=== PATIENT | female | born 1995 | race Caucasian/White ===

== ENCOUNTER 2018-03-27 22:53 | Emergency (ER) | payer SELFPAY ==
[2018-03-27 23:09] VITALS: BP 119/86; PULSE 106; RESP 16; TEMP 37.1; O2SAT 100; BMI 17.2
[2018-03-28 01:38] LABS: RBC Urine None Seen (0-5/HPF)
[2018-03-28 01:42] LABS: Bacteria Urine Many (>30); Culture Indicated Urine Specimen Cultured; Squamous Epithelial Cell Urine 0-1 /HPF; WBC Urine 1-5/HPF (0-5/HPF)
--- NOTE | 2018-03-28 01:45 | ED.SKABFB ---
HPI - Skin/Abscess/Foreign Bdy General Chief complaint: Skin/Abscess/Foreign Body Stated complaint: Abcess on Neck Time Seen by Provider: 03/28/18 00:37 Source: patient Mode of arrival: ambulatory Limitations: no limitations History of Present Illness HPI narrative: Patient is a 22-year-old female who presents with an abscess on her neck for the last 5 days. He is growing bigger. She is a known drug user admits to shooting up heroin in that spot. She has no fever chills numbness or tingling in any of her extremities. MD complaint: abscess/boil Related Data Previous Rx's Medication Instructions Recorded sulfamethoxazole-trimethoprim 1 tab PO BID 7 Days #14 tab 03/28/18 [Bactrim DS] Review of Systems Review of Systems All systems reviewed & are unremarkable except as noted in HPI and below Constitutional Denies chills, Denies fever(s), Denies lethargy and Denies weakness ENT Ears, Nose, Mouth, and Throat: Denies change in voice and Reports neck mass (left supraclavicular) Cardiovascular Denies chest pain, Denies irregular heart rhythm, Denies lightheadedness, Denies palpitations, Denies dyspnea, Denies dyspnea on exertion and Denies orthopnea Respiratory Denies cough, Denies dyspnea, Denies dyspnea on exertion and Denies wheezing Gastrointestinal Gastrointestinal: Denies abdominal pain, Denies change in bowel habits, Denies diarrhea, Denies nausea and Denies vomiting Integumentary/Breasts Reports system reviewed and no additional complaints, except as docu Neurologic Denies weakness Endocrine Denies palpitations Allergic/Immunologic Denies wheezing [facility] Social History Smoking Status: Never smoker substance use type: heroin and IV drugs Exam Initial Vital Signs Initial Vital Signs: Vital Signs Temperature 98.8 F 03/27/18 23:09 Pulse Rate 106 H 03/27/18 23:09 Respiratory Rate 16 03/27/18 23:09 Blood Pressure 119/86 H 03/27/18 23:09 Pulse Oximetry 100 03/27/18 23:09 Const General: cooperative and well developed HENMN Head: normal to inspection and normocephalic Neck Neck: trachea midline, supple, No anterior neck swelling, No midline deformity and No submandibular swelling Other: No pulsatile mass Chest Chest: normal inspection of the chest Resp Effort & Inspection: normal respiratory effort and able to speak in complete sentences Auscultation: clear to auscultation bilaterally Cardio Rate: regular rate Rhythm: regular rhythm Skin Other: Track scott on a couple side of her arms and hands Neck - Left: 1. 3 cm x 4 cm fluctuation no induration Procedures Abscess I/D Site: neck (Left side) Side (if applicable): left Sedation/analgesia: none Local Anesthetic: lidocaine 1% Amount of anesthesia used (mL): 4 Technique: incised with #11 blade Amount of fluid expressed (mL): 15 Irrigation: No Packing used?: none Complications: pain Course Hospital Course: Discussed with patient it does need to be opened and drained. She does not what that last time they just gave her antibiotics. We discussed that as an option as well however she and her boyfriend are discussing it. Patient left the department for a long period of time and then returned. Orders Ordered: ED Orders 03/28/18 01:20 Urine Culture Stat Urine Microscopic Stat Discontinued Medications Trimethoprim/Sulfamethoxazole (Septra Susp Prepack) 1 bottle MISC SEEINSTR ONE Stop: 03/28/18 01:57 Last Admin: 03/28/18 02:31 Dose: Trimethoprim/Sulfamethoxazole (Bactrim Ds Prepack) 1 bottle MISC SEEINSTR ONE Stop: 03/28/18 02:02 Last Admin: 03/28/18 02:12 Dose: 1 bottle Vital Signs - 8 hr 03/27/18 23:09 Temperature 98.8 F Pulse Rate 106 H Respiratory Rate 16 Blood Pressure 119/86 H Pulse Oximetry 100 MDM - Skin/Abscess/Foreign Bdy Lab Data Lab Results 03/28/18 Range/Units 01:20 Urine RBC None seen (0-5/HPF) Urine WBC 1-5/hpf (0-5/HPF) Ur Squamous Epith Cells 0-1 /hpf Urine Bacteria Many (>30) H (None) Ur Culture Indicated? Specimen cultured Micro UA Comment Not Reportable Discharge Plan Departure Patient Disposition: Home, Self-Care Clinical Impression: Abscess of skin or subcutaneous tissue Instructions: DI for Incision and Drainage of a Skin Abscess Activity Restrictions/Additional Instructions: *You have been diagnosed with skin abscess *What to do: Stop using drugs *Continue to take medications as directed -Septra 1 pill twice a day for 7 days *Follow up with your primary care provider in 2-3 days *Return to ER if you should have fever, increasing redness, numbness, tingling or any new, worsening or concerning symptoms Prescriptions: New sulfamethoxazole-trimethoprim [Bactrim DS] 800-160 mg tablet 1 tab PO BID 7 Days Qty: 14 RF: 0 Referrals: [facility] [Outside]
--- NOTE | 2018-03-28 01:48 | ED_ITS ---
HPI - Skin/Abscess/Foreign Bdy General Chief complaint: Skin/Abscess/Foreign Body Stated complaint: Abcess on Neck Time Seen by Provider: 03/28/18 00:37 Source: patient Mode of arrival: ambulatory Limitations: no limitations History of Present Illness HPI narrative: Patient is a 22-year-old female who presents with an abscess on her neck for the last 5 days. He is growing bigger. She is a known drug user admits to shooting up heroin in that spot. She has no fever chills numbness or tingling in any of her extremities. MD complaint: abscess/boil Related Data Previous Rx's Medication Instructions Recorded sulfamethoxazole-trimethoprim 1 tab PO BID 7 Days #14 tab 03/28/18 [Bactrim DS] Review of Systems Review of Systems All systems reviewed & are unremarkable except as noted in HPI and below Constitutional Denies chills, Denies fever(s), Denies lethargy and Denies weakness ENT Ears, Nose, Mouth, and Throat: Denies change in voice and Reports neck mass ( left supraclavicular) Cardiovascular Denies chest pain, Denies irregular heart rhythm, Denies lightheadedness, Denies palpitations, Denies dyspnea, Denies dyspnea on exertion and Denies orthopnea Respiratory Denies cough, Denies dyspnea, Denies dyspnea on exertion and Denies wheezing Gastrointestinal Gastrointestinal: Denies abdominal pain, Denies change in bowel habits, Denies diarrhea, Denies nausea and Denies vomiting Integumentary/Breasts Reports system reviewed and no additional complaints, except as docu Neurologic Denies weakness Endocrine Denies palpitations Allergic/Immunologic Denies wheezing [facility] Social History Smoking Status: Never smoker substance use type: heroin and IV drugs Exam Initial Vital Signs Initial Vital Signs: Vital Signs Temperature 98.8 F 03/27/18 23:09 Pulse Rate 106 H 03/27/18 23:09 Respiratory Rate 16 03/27/18 23:09 Blood Pressure 119/86 H 03/27/18 23:09 Pulse Oximetry 100 03/27/18 23:09 Const General: cooperative and well developed HENLA Head: normal to inspection and normocephalic Neck Neck: trachea midline, supple, No anterior neck swelling, No midline deformity and No submandibular swelling Other: No pulsatile mass Chest Chest: normal inspection of the chest Resp Effort & Inspection: normal respiratory effort and able to speak in complete sentences Auscultation: clear to auscultation bilaterally Cardio Rate: regular rate Rhythm: regular rhythm Skin Other: Track scott on a couple side of her arms and hands Neck - Left: 2 1. 3 cm x 4 cm fluctuation no induration Procedures Abscess I/D Site: neck (Left side) Side (if applicable): left Sedation/analgesia: none Local Anesthetic: lidocaine 1% Amount of anesthesia used (mL): 4 Technique: incised with #11 blade Amount of fluid expressed (mL): 15 Irrigation: No Packing used?: none Complications: pain Course Hospital Course: Discussed with patient it does need to be opened and drained. She does not what that last time they just gave her antibiotics. We discussed that as an option as well however she and her boyfriend are discussing it. Patient left the department for a long period of time and then returned. Orders Ordered: ED Orders 03/28/18 01:20 Urine Culture Stat Urine Microscopic Stat Discontinued Medications Trimethoprim/Sulfamethoxazole (Septra Susp Prepack) 1 bottle MISC SEEINSTR ONE Stop: 03/28/18 01:57 Last Admin: 03/28/18 02:31 Dose: Trimethoprim/Sulfamethoxazole (Bactrim Ds Prepack) 1 bottle MISC SEEINSTR ONE Stop: 03/28/18 02:02 Last Admin: 03/28/18 02:12 Dose: 1 bottle Vital Signs - 8 hr 03/27/18 23:09 Temperature 98.8 F Pulse Rate 106 H Respiratory Rate 16 Blood Pressure 119/86 H Pulse Oximetry 100 MDM - Skin/Abscess/Foreign Bdy Lab Data Lab Results 03/28/18 Range/Units 01:20 Urine RBC None seen (0-5/HPF) Urine WBC 1-5/hpf (0-5/HPF) Ur Squamous Epith Cells 0-1 /hpf Urine Bacteria Many (>30) H (None) Ur Culture Indicated? Specimen cultured Micro UA Comment Not Reportable Discharge Plan Departure Patient Disposition: Home, Self-Care Clinical Impression: Abscess of skin or subcutaneous tissue Instructions: DI for Incision and Drainage of a Skin Abscess Activity Restrictions/Additional Instructions: *You have been diagnosed with skin abscess *What to do: Stop using drugs *Continue to take medications as directed -Septra 1 pill twice a day for 7 days *Follow up with your primary care provider in 2-3 days *Return to ER if you should have fever, increasing redness, numbness, tingling or any new, worsening or concerning symptoms Prescriptions: New sulfamethoxazole-trimethoprim [Bactrim DS] 800-160 mg tablet 1 tab PO BID 7 Days Qty: 14 RF: 0 Referrals: [facility] [Outside]
[2018-03-28] MEDS: SULFA/TRIMETH 800/160 PREPACK 1 BOTTLE MISC (02:12)
[2018-03-28 02:37] VITALS: BP 120/70; PULSE 94; RESP 20; TEMP 36.8; O2SAT 98
== END 2018-03-28 02:46 | disposition home or self-care (01) ==
PROVIDERS: Emergency Provider Emergency Medicine
DX: L02.11 Cutaneous abscess of neck (principal)
CPT/HCPCS: 10060; 81003; 81015; 81025; 87077; 87086; 87186; 99283

== ENCOUNTER 2018-05-03 21:03 | Emergency (ER) | payer SELFPAY ==
[2018-05-03 21:54] VITALS: BP 144/89; PULSE 105; RESP 15; TEMP 36.6; O2SAT 100; BMI 17.2
[2018-05-04] MEDS: IBUPROFEN 400 MG TABLET 800 MG PO (01:18)
[2018-05-04] MEDS: DOXYCYCLINE HYCLATE 100 MG TABLET PO (01:18)
[2018-05-04] MEDS: ONDANSETRON 4 MG ODT PREPACK 1 BOTTLE MISC (01:18)
[2018-05-04 01:39] VITALS: BP 124/77; PULSE 94; RESP 15; O2SAT 100
--- NOTE | 2018-05-04 04:26 | ED_ITS ---
HPI - Extremity Problem General Chief complaint: Extremity Problem,Nontraumatic Stated complaint: FACIAL SWELLING, NOT SURE WHY. X2 DAYS Time Seen by Provider: 05/03/18 21:12 Source: patient and family Mode of arrival: ambulatory Limitations: no limitations History of Present Illness HPI Narrative: Patient presents to the emergency department this evening with a chief complaint of some facial swelling around her eyes. She had which he thought was a pimple above her right eyebrow and she has been squeezing it with minimal pus production for the past few days. She now has increased swelling and some redness on her forehead and noted some swelling around her eyes as well. She denies any headache or blurred vision. She has no trouble breathing or swallowing. She denies chest pain or shortness of breath. She denies any history of MRSA. MD Complaint: other (Facial swelling) Onset (ago): day(s) Related Data Previous Rx's Medication Instructions Recorded doxycycline hyclate 100 mg PO BID #20 tab 05/04/18 Allergies Allergy/AdvReac Type Severity Reaction Status Date / Time erythromycin base Allergy Verified 05/03/18 21:54 Penicillins Allergy Verified 05/03/18 21:54 Review of Systems Review of Systems All systems reviewed & are unremarkable except as noted in HPI and below Constitutional Denies chills, Denies fever(s), Denies lethargy and Denies weakness Eyes Denies change in vision, Denies eye discharge, Denies irritation and Denies loss of vision ENT Ears, Nose, Mouth, and Throat: Denies change in voice, Denies neck pain and Denies sore throat Cardiovascular Denies chest pain, Denies irregular heart rhythm, Denies lightheadedness, Denies palpitations, Denies dyspnea, Denies dyspnea on exertion and Denies orthopnea Respiratory Denies cough, Denies dyspnea, Denies dyspnea on exertion and Denies wheezing Gastrointestinal Gastrointestinal: Denies abdominal pain, Denies change in bowel habits, Denies diarrhea, Denies nausea and Denies vomiting Genitourinary Denies hematuria, Denies flank pain, Denies urinary incontinence and Denies urinary urgency Musculoskeletal Denies neck pain Integumentary/Breasts Denies pruritus, Reports lesions, Reports erythema, Denies rash and Denies wounds Neurologic Denies confusion, Denies loss of vision and Denies weakness Psychiatric Denies anxiety, Denies confusion, Denies depression, Denies homicidal ideation and Denies suicidal ideation Endocrine Denies palpitations Hematologic/Lymphatic Denies easy bruising Allergic/Immunologic Denies wheezing PFSH Social History Smoking Status: Never smoker substance use type: heroin and IV drugs Exam Initial Vital Signs Initial Vital Signs: Vital Signs Temperature 97.8 F 05/03/18 21:54 Pulse Rate 105 H 05/03/18 21:54 Respiratory Rate 15 05/03/18 21:54 Blood Pressure 144/89 H 05/03/18 21:54 Pulse Oximetry 100 05/03/18 21:54 Const General: cooperative and well developed Nutritional Appearance: well nourished Orientation: alert, awake, oriented x3 and not confused HENMT Head: normocephalic and atraumatic Ears: external ears normal and TM's normal bilaterally Nose: external nose normal and No nasal discharge Face and sinus: erythema (Due to small abscess above right eye, no on going fluctuance just mild induration) on the right, edema, no sinus tenderness and No dry mucous membranes Mouth: oral mucosae normal and moist mucous membranes Teeth and gingiva: dentition normal Throat: tonsils normal and uvula midline Eyes General: appearance normal, both eyes and all related structures Eyelids: eyelids normal Conjunctivae: conjunctivae normal Sclera: sclerae normal Pupils: PERRL EOM: EOM intact bilaterally Chest Chest: normal inspection of the chest Cardio Rate: regular rate Rhythm: regular rhythm Heart Sounds: no click, no gallops, no murmurs and no rubs Pulses: normal peripheral pulses Neuro General: alert, oriented x3, gait normal and no focal motor deficits Speech: speech normal Course Orders Ordered: Discontinued Medications Doxycycline Hyclate (Vibramycin) 100 mg PO NOW ONE Stop: 05/04/18 01:00 Last Admin: 05/04/18 01:18 Dose: 100 mg Ibuprofen (Advil) 800 mg PO NOW ONE Stop: 05/04/18 01:12 Last Admin: 05/04/18 01:18 Dose: 800 mg Ondansetron HCl (Zofran Odt Prepack) 1 bottle MISC SEEINSTR ONE Stop: 05/04/18 01:00 Last Admin: 05/04/18 01:18 Dose: 1 bottle Vital Signs - 8 hr 05/03/18 21:54 05/04/18 01:39 Temperature 97.8 F Pulse Rate 105 H 94 H Respiratory Rate 15 15 Blood Pressure 144/89 H 124/77 H Pulse Oximetry 100 100 Discharge Plan Departure Patient Disposition: Home, Self-Care Clinical Impression: Cellulitis Discharge Date/Time: 05/04/18 01:39 Interventions: ED Discharge Assessment Last Done: 05/04/18 01:39 Instructions: DI for Cellulitis -- Adult Activity Restrictions/Additional Instructions: *You have been diagnosed with [ acute facial cellulitis ] *What to do: *Take medications as directed, you have been given her 1st dose of antibiotic tonight is also prepack for the antinausea meds. He can take the prescription to any pharmacy of her choice *Follow up with your primary care provider in 2-3 days, call for an appointment. Let them know you were seen in the Emergency Department and that we ask that you be seen in follow up *Return to ER if you should have any new, worsening or concerning symptoms , such as [worsening facial swelling, fever greater than 101 F or other bothersome symptoms ] Prescriptions: New doxycycline hyclate 100 mg tablet 100 mg PO BID Qty: 20 RF: 0
== END 2018-05-04 01:39 | disposition home or self-care (01) ==
PROVIDERS: Emergency Provider Emergency Medicine
DX: L03.211 Cellulitis of face (principal)
CPT/HCPCS: 99282; 99283